=== PATIENT | female | born 1965 | race Two or more races ===

== ENCOUNTER 2017-09-06 09:13 | Emergency (ER) | payer SELFPAY ==
[~2017-09-06 09:13] MED LIST: DOXY100C2 PO
--- NOTE | 2017-09-06 09:17 | PHYS DOC ---
Past Medical History Past Medical History: High Cholesterol, Hypertension, Other Additional Past Medical Histor: VIT D DEFICIENCY, PRE DIABETES Past Surgical History: Cholecystectomy Alcohol Use: None Drug Use: None Adult General Chief Complaint Chief Complaint: ABDOMINAL PAIN HPI HPI Patient is a 52 year old female who presents with in severe pain and rectal pain. She has been going on for about 2 weeks. She states is constant. It 's actually relieved a little bit after she has a bowel movement. She denies any blood in her stools. She denies any vaginal bleeding or discharge. She's not had any surgeries on her abdomen. She's not been taking anything for pain or discomfort. She states that the pain is getting worse over the last few days she felt like she had body aches and muscle aches throughout her body. Results and her . The blue phone was used to interpret. She states that she feels like she's constipation been eating a lot of fruits and soft and and that makes her have diarrhea. She denies any chills, or vomiting. She denies any shortness of breath. Review of Systems Review of Systems Constitutional: Denies fever or chills [] Eyes: Denies change in visual acuity, redness, or eye pain [] HENT: Denies nasal congestion or sore throat [] Respiratory: Denies cough or shortness of breath [] Cardiovascular: No additional information not addressed in HPI [] GI: Positive for abdominal pain,Denies nausea, vomiting, bloody stools or diarrhea [] : Denies dysuria or hematuria [] Musculoskeletal: Denies back pain or joint pain [] Integument: Denies rash or skin lesions [] Neurologic: Denies headache, focal weakness or sensory changes [] Endocrine: Denies polyuria or polydipsia [] All other systems were reviewed and found to be within normal limits, except as documented in this note. Current Medications Current Medications Current Medications Medications (Trade) Dose Ordered Sig/Fernandez Start Time Stop Time Status Last Admin Dose Admin Fentanyl Citrate (Fentanyl 2ml Vial) 25 mcg PRN Q15MIN PRN 09/06/17 09:45 09/07/17 09:44 09/06/17 10:12 25 MCG Info (Do NOT chart on this entry -- for MONITORING) 1 each PRN DAILY PRN 09/06/17 10:15 09/08/17 10:14 Iohexol (Omnipaque 300 Mg/ml) 75 ml 1X ONCE 09/06/17 10:15 09/06/17 10:16 DC 09/06/17 10:57 75 ML Sodium Chloride 1,000 ml @ 1,000 mls/hr Q1H 09/06/17 09:17 09/06/17 10:16 DC 09/06/17 10:09 1,000 MLS/HR Allergies Allergies Allergies Coded Allergies Type Severity Reaction Last Updated Verified No Known Drug Allergies 08/01/16 No Physical Exam Physical Exam Constitutional: Well developed, well nourished, no acute distress, non-toxic appearance. [] HENT: Normocephalic, atraumatic, bilateral external ears normal, oropharynx moist, no oral exudates, nose normal. [] Eyes: PERRLA, EOMI, conjunctiva normal, no discharge. [] Neck: Normal range of motion, no tenderness, supple, no stridor. [] Cardiovascular:Heart rate regular rhythm, no murmur [] Lungs & Thorax: Bilateral breath sounds clear to auscultation [] Abdomen/rectal exam: Bowel sounds normal, soft, tender palpation in the bilateral lower quadrants and suprapubic area the most, no rebound or guarding, no masses, no pulsatile masses. Rectal exam shows 2 external hemorrhoids noted, normal tone, no masses, stool in the vault no blood noted [] Skin: Warm, dry, no erythema, no rash. [] Back: No tenderness, no CVA tenderness. [] Extremities: No tenderness, no cyanosis, no clubbing, ROM intact, no edema. [] Neurologic: Alert and oriented X 3, normal motor function, normal sensory function, no focal deficits noted. [] Psychologic: Affect normal, judgement normal, mood normal. [] Current Patient Data Vital Signs Vital Signs Date Time Temp Pulse Resp B/P (MAP) Pulse Ox O2 Delivery O2 Flow Rate FiO2 09/06/17 10:12 16 09/06/17 09:15 97.9 85 156/100 (118) 97 Room Air 97.9 Lab Values Laboratory Tests Test 09/06/17 09:25 09/06/17 09:40 09/06/17 10:10 Urine Collection Type Unknown Urine Color Yellow Urine Clarity Clear Urine pH 7.0 Urine Specific [place] 1.010 Urine Protein Negative mg/dL (NEG-TRACE) Urine Glucose (UA) Negative mg/dL (NEG) Urine Ketones (Stick) Negative mg/dL (NEG) Urine Blood Negative (NEG) Urine Nitrite Negative (NEG) Urine Bilirubin Negative (NEG) Urine Urobilinogen Dipstick 0.2 mg/dL (0.2 mg/dL) Urine Leukocyte Esterase Small (NEG) Urine RBC 0 /HPF (0-2) Urine WBC Occ /HPF (0-4) Urine Squamous Epithelial Cells Few /LPF Urine Bacteria Few /HPF (0-FEW) Urine Opiates Screen Neg (NEG) Urine Methadone Screen Neg (NEG) Urine Barbiturates Neg (NEG) Urine Phencyclidine Screen Neg (NEG) Urine Amphetamine/Methamphetamine Neg (NEG) Urine Benzodiazepines Screen Neg (NEG) Urine Cocaine Screen Neg (NEG) Urine Cannabinoids Screen Neg (NEG) Urine Ethyl Alcohol Neg (NEG) White Blood Count 5.9 x10^3/uL (4.0-11.0) Red Blood Count 4.96 x10^6/uL (3.50-5.40) Hemoglobin 14.4 g/dL (12.0-15.5) Hematocrit 43.5 % (36.0-47.0) Mean Corpuscular Volume 88 fL (79-100) Mean Corpuscular Hemoglobin 29 pg (25-35) Mean Corpuscular Hemoglobin Concent 33 g/dL (31-37) Red Cell Distribution Width 14.8 % (11.5-14.5) H Platelet Count 223 x10^3/uL (140-400) Neutrophils (%) (Auto) 49 % (31-73) Lymphocytes (%) (Auto) 41 % (24-48) Monocytes (%) (Auto) 6 % (0-9) Eosinophils (%) (Auto) 3 % (0-3) Basophils (%) (Auto) 0 % (0-3) Neutrophils # (Auto) 2.9 x10^3uL (1.8-7.7) Lymphocytes # (Auto) 2.4 x10^3/uL (1.0-4.8) Monocytes # (Auto) 0.4 x10^3/uL (0.0-1.1) Eosinophils # (Auto) 0.2 x10^3/uL (0.0-0.7) Basophils # (Auto) 0.0 x10^3/uL (0.0-0.2) Prothrombin Time 12.4 SEC (11.7-14.0) Prothrombin Time INR 1.0 (0.8-1.1) Sodium Level 139 mmol/L (136-145) Potassium Level 4.1 mmol/L (3.5-5.1) Chloride Level 102 mmol/L (98-107) Carbon Dioxide Level 29 mmol/L (21-32) Anion Gap 8 (6-14) Blood Urea Nitrogen 12 mg/dL (7-20) Creatinine 0.5 mg/dL (0.6-1.0) L Estimated GFR (Cockcroft-Gault) 129.1 Glucose Level 101 mg/dL (70-99) H Calcium Level 9.1 mg/dL (8.5-10.1) Magnesium Level 2.1 mg/dL (1.8-2.4) Total Bilirubin 0.7 mg/dL (0.2-1.0) Direct Bilirubin 0.1 mg/dL (0.0-0.2) Aspartate Amino Transferase (AST) 21 U/L (15-37) Alanine Aminotransferase (ALT) 38 U/L (14-59) Alkaline Phosphatase 103 U/L (46-116) Creatine Kinase 92 U/L (26-192) Creatine Kinase MB (Mass) 0.7 ng/mL (0.0-3.6) Creatine Kinase MB Relative Index 0.8 % (0-4) Troponin I Quantitative < 0.017 ng/mL (0.000-0.055) IT-Zkn-V-Type Natriuretic Peptide 10 pg/mL (0-124) Total Protein 7.9 g/dL (6.4-8.2) Albumin 4.1 g/dL (3.4-5.0) Lipase 157 U/L (73-393) Thyroid Stimulating Hormone (TSH) 1.972 uIU/mL (0.358-3.74) Stool Occult Blood Negative (NEG) Laboratory Tests 09/06/17 09:40 Laboratory Tests 09/06/17 09:40 EKG EKG EKG shows sinus rhythm [address] elevations, or without any T- wave inversions that are concerning. Normal axis, QTC 445 ms, as interpreted by me. Radiology/Procedures Radiology/Procedures [facility] [address] [place] [address] IMAGING REPORT Signed PATIENT: WHIT MARIN ACCOUNT: [id number] : 1965 LOCATION: ER AGE: 52 SEX: F EXAM STATUS: REG ER ORD. PHYSICIAN: ALANNA ARELLANO MD REASON: abd pain PROCEDURE: CT ABD PELV W/ IV CONTRST ONLY EXAM: CT abdomen and pelvis with contrast. HISTORY: 52-year-old female with abdominal pain and diarrhea. Patient reports a history of right kidney stone. Previous cholecystectomy and . TECHNIQUE: Computed tomographic images of the abdomen and pelvis are obtained following the intravenous demonstration of 75 cc of Omni 300.. Multiplanar reformatting was performed. One or more of the following individualized dose reduction techniques were utilized for this examination: 1. Automated exposure control 2. Adjustment of the mA and/or kV according to patient size 3. Use of iterative reconstruction technique COMPARISON: None. FINDINGS: The visualized lung bases are clear. The liver demonstrates no focal abnormality. Gallbladder is surgically absent. The spleen, pancreas and adrenal glands demonstrate no focal abnormality. Mild right hydronephrosis is present. No right nephrolithiasis is seen. A 5 mm calculus is present within the inferior left kidney, without significant hydronephrosis present. No ureterolithiasis is seen. A subcentimeter, superior right cortical hypodensity is present, too small to characterize. Urinary bladder is mostly decompressed and not well evaluated. The GI tract demonstrates no dilated bowel loops to suggest obstruction. Appendix is normal in caliber and air-filled in the right lower quadrant. The uterus and bilateral adnexa demonstrate no focal abnormality. No free fluid, free air or significant lymphadenopathy is seen within the abdomen or pelvis. Fat-containing umbilical hernia is present. Overlying soft tissues and visualized osseous structures demonstrate no acute finding. Mild degenerative changes are present within the visualized spine. IMPRESSION: 1. Nonobstructing inferior left renal calculus measuring 5 mm. Mild right hydronephrosis is present, without right nephrolithiasis or bilateral ureterolithiasis seen. 2. No other acute intraabdominal or pelvic process is seen. DICTATED and SIGNED BY: SONNY OCHOA MD DATE: 09/06/17 1104 CC: ALANNA ARELLANO MD; NO PCP ~ [facility] [address] [place] [address] IMAGING REPORT Signed PATIENT: WHIT MARIN ACCOUNT: [id number] : 1965 LOCATION: ER AGE: 52 SEX: F EXAM STATUS: REG ER ORD. PHYSICIAN: ALANNA ARELLANO MD REASON: pelvic pain PROCEDURE: PELVIS W/TV PELVIS W/TV Clinical Indication: pelvic pain Comparison: None. Technique: Transverse and longitudinal sonography of the pelvis is performed utilizing transabdominal and transvaginal transducers. Findings: Transabdominal imaging demonstrates an anteflexed uterus measuring 7.6 x 3.5 x 5.1 cm. Endometrial thickness measures 4 mm. No focal myometrial abnormality is seen. Neither ovary is visualized. Transvaginal imaging demonstrates partial visualization of the left ovary, posteriorly located, measuring approximately 3.2 x 2.5 x 2.3 cm. Internal blood flow is documented. The right ovary is better visualized, more anteriorly located, measuring 2.4 x 1.6 x 1.5 cm with internal blood flow documented. No ovarian or adnexal mass is seen. Uterus measures 6.9 x 4.9 x 5.6 cm transvaginally. No free fluid seen within the provided images. IMPRESSION: No focal sonographic abnormality seen in the pelvis. DICTATED and SIGNED BY: SONNY OCHOA MD DATE: 09/06/17 1100 CC: ALANNA ARELLANO MD; NO PCP ~ [facility] [address] [place] [address] IMAGING REPORT Signed PATIENT: WHIT MARIN ACCOUNT: [id number] : 1965 LOCATION: ER AGE: 52 SEX: F EXAM STATUS: REG ER ORD. PHYSICIAN: ALANNA ARELLANO MD REASON: pelvic pain PROCEDURE: PELVIS PELVIS Clinical Indication: 52-year-old female with pelvic pain, no injury specified. Comparison: None. Technique: Frontal supine view of the pelvis is obtained. Findings: No acute, displaced pelvic fracture is seen. SI joints, hip joints, and pubic symphysis are maintained. Mild degenerative changes of the hip joints and pubic symphysis are seen. Some formed fecal material is seen within the visualized proximal colon and rectum. Surrounding soft tissues demonstrate no acute finding. IMPRESSION: No acute osseous injury seen. DICTATED and SIGNED BY: SONNY OCHOA MD DATE: 09/06/17 1012 CC: ALANNA ARELLANO MD; NO PCP ~ Impressions: Hemorrhoids Right-sided hydronephrosis without any stones present\ left-sided kidney stone Course & Med Decision Making Course & Med Decision Making Pertinent Labs and Imaging studies reviewed. (See chart for details) CT scan abdomen pelvis shows right-sided hydronephrosis without any stones. She does not have any blood in her urine. She will need to follow-up with urology at [facility] for this. She also has external hemorrhoid social be sent home with hydrocortisone rectal suppositories. A prescription has been written. She'll follow-up with Dr. Johnson regarding this. Return precautions given. She is agreeable to the plan being discharged in stable condition at this time. Dragon Disclaimer Dragon Disclaimer This electronic medical record was generated, in whole or in part, using a voice recognition dictation system. Departure Departure Impression: Primary Impression: External hemorrhoids Disposition: 01 HOME, SELF-CARE Condition: STABLE Referrals: NO PCP (PCP) SHERI JOHNSON MD Patient Instructions: Hemorrhoids Additional Instructions: Your blood work, CT scan shows you have some kidney stones that are not causing any problems at this time. You will need to follow-up with urologist. You should follow them up at [facility] at: [phone] [facility]. Their phone number is: You also external hemorrhoids and you can use hemorrhoidal cream as instructed. You follow-up with surgery. Please call Dr. Johnson at the number listed. If you have increasing pain, or other concerns please return back to emergency department. Scripts Hydrocortisone Acetate (ANUSOL-HC) 25 Mg Supp.rect 1 SUPP RC BID, #14 SUPP Prov: ALANNA ARELLANO MD 09/06/17 ALANNA ARELLANO MD Sep 06, 2017 09:17
[2017-09-06 09:38] LABS: BILIRUBIN,URINE NEGATIVE (NEG); GLUCOSE,URINE NEGATIVE (NEG); NITRITE,URINE NEGATIVE (NEG); PROTEIN,URINE NEGATIVE (NEG-TRACE); UROBILINOGEN,URINE 0.2 mg/dL (0.2 mg/dL)
[2017-09-06 09:46] LABS: BACTERIA,URINE FEW /HPF (0-FEW); BARBITURATES NEG (NEG); BENZODIAZEPINES NEG (NEG); CANNABINOIDS NEG (NEG); COCAINE NEG (NEG); METHADONE NEG (NEG); OPIATES NEG (NEG); PHENCYCLIDINE NEG (NEG); RBC,URINE 0 /HPF (0-2); SQUAMOUS EPITHELIAL CELL,UR FEW /LPF; WBC,URINE OCC /HPF (0-4)
[2017-09-06 09:57] LABS: BASO % 0 % (0-3); EOS % 3 % (0-3); HEMATOCRIT 43.5 % (36.0-47.0); HEMOGLOBIN 14.4 g/dL (12.0-15.5); LYMPH # 2.4 x10^3/uL (1.0-4.8); LYMPH % 41 % (24-48); MEAN CORPUSCULAR HEMOGLOBIN 29 pg (25-35); MEAN CORPUSCULAR HGB CONC 33 g/dL (31-37); MEAN CORPUSCULAR VOLUME 88 fL (79-100); MONO % 6 % (0-9); NEUT % 49 % (31-73); PLATELET COUNT 223 x10^3/uL (140-400); RED BLOOD COUNT 4.96 x10^6/uL (3.50-5.40); RED CELL DISTRIBUTION WIDTH 14.8 % (11.5-14.5); WHITE BLOOD COUNT 5.9 x10^3/uL (4.0-11.0)
[2017-09-06 10:05] LABS: PROTHROMBIN TIME PATIENT 12.4 SEC (11.7-14.0)
[2017-09-06 10:08] LABS: CALCIUM 9.1 mg/dL (8.5-10.1); CREATININE 0.5 mg/dL (0.6-1.0); GFR 129.1; POTASSIUM 4.1 mmol/L (3.5-5.1)
[2017-09-06] MEDS: IV NORMAL SALINE 1000ML BAG 1,000 ML IV SCH (10:09)
[2017-09-06] MEDS: fentaNYL PF VIAL 100 MCG/2 ML VIAL IV PRN (10:12)
[2017-09-06 10:14] LABS: ALBUMIN 4.1 g/dL (3.4-5.0); DIRECT BILIRUBIN 0.1 mg/dL (0.0-0.2); MAGNESIUM 2.1 mg/dL (1.8-2.4); TOTAL BILIRUBIN 0.7 mg/dL (0.2-1.0); TOTAL PROTEIN 7.9 g/dL (6.4-8.2)
[2017-09-06] MEDS ORDERED: CONTRAST GIVEN MC PRN (10:15)
--- NOTE | 2017-09-06 10:15 | EKG ---
[facility] [address] [place] [address] Test Date: 2017-09-06 Test Time: 10:00:25 Pat Name: WHIT MARIN Department: Room: Gender: F Surgical Services Tech: : 1965 Requested By: ALANNA ARELLANO Order Number: [id number] Reading MD: Byron Bailey MD Measurements Intervals [place] Rate: 76 P: 51 TX: 180 QRS: 3 QRSD: 100 T: 27 QT: 392 QTc: 445 Interpretive Statements SINUS RHYTHM Electronically Signed On 09-11-2017 15:59:31 PROPOSAL ANALYST by Byron Bailey MD
--- NOTE | 2017-09-06 10:18 | RAD ---
PELVIS Clinical Indication: 52-year-old female with pelvic pain, no injury specified. Comparison: None. Technique: Frontal supine view of the pelvis is obtained. Findings: No acute, displaced pelvic fracture is seen. SI joints, hip joints, and pubic symphysis are maintained. Mild degenerative changes of the hip joints and pubic symphysis are seen. Some formed fecal material is seen within the visualized proximal colon and rectum. Surrounding soft tissues demonstrate no acute finding. IMPRESSION: No acute osseous injury seen.
[2017-09-06 10:22] LABS: CKMB MASS 0.7 ng/mL (0.0-3.6)
[2017-09-06 10:45] LABS: NEG OBC FOB NEG; POS OBC FOB POS
[2017-09-06] MEDS: IOHEXOL 300 MG/ML 100ML VIAL. IV ONE (10:57)
--- NOTE | 2017-09-06 11:09 | RAD ---
PELVIS W/TV Clinical Indication: pelvic pain Comparison: None. Technique: Transverse and longitudinal sonography of the pelvis is performed utilizing transabdominal and transvaginal transducers. Findings: Transabdominal imaging demonstrates an anteflexed uterus measuring 7.6 x 3.5 x 5.1 cm. Endometrial thickness measures 4 mm. No focal myometrial abnormality is seen. Neither ovary is visualized. Transvaginal imaging demonstrates partial visualization of the left ovary, posteriorly located, measuring approximately 3.2 x 2.5 x 2.3 cm. Internal blood flow is documented. The right ovary is better visualized, more anteriorly located, measuring 2.4 x 1.6 x 1.5 cm with internal blood flow documented. No ovarian or adnexal mass is seen. Uterus measures 6.9 x 4.9 x 5.6 cm transvaginally. No free fluid seen within the provided images. IMPRESSION: No focal sonographic abnormality seen in the pelvis.
--- NOTE | 2017-09-06 11:17 | RAD ---
EXAM: CT abdomen and pelvis with contrast. HISTORY: 52-year-old female with abdominal pain and diarrhea. Patient reports a history of right kidney stone. Previous cholecystectomy and . TECHNIQUE: Computed tomographic images of the abdomen and pelvis are obtained following the intravenous demonstration of 75 cc of Omni 300.. Multiplanar reformatting was performed. One or more of the following individualized dose reduction techniques were utilized for this examination: 1. Automated exposure control 2. Adjustment of the mA and/or kV according to patient size 3. Use of iterative reconstruction technique COMPARISON: None. FINDINGS: The visualized lung bases are clear. The liver demonstrates no focal abnormality. Gallbladder is surgically absent. The spleen, pancreas and adrenal glands demonstrate no focal abnormality. Mild right hydronephrosis is present. No right nephrolithiasis is seen. A 5 mm calculus is present within the inferior left kidney, without significant hydronephrosis present. No ureterolithiasis is seen. A subcentimeter, superior right cortical hypodensity is present, too small to characterize. Urinary bladder is mostly decompressed and not well evaluated. The GI tract demonstrates no dilated bowel loops to suggest obstruction. Appendix is normal in caliber and air-filled in the right lower quadrant. The uterus and bilateral adnexa demonstrate no focal abnormality. No free fluid, free air or significant lymphadenopathy is seen within the abdomen or pelvis. Fat-containing umbilical hernia is present. Overlying soft tissues and visualized osseous structures demonstrate no acute finding. Mild degenerative changes are present within the visualized spine. IMPRESSION: 1. Nonobstructing inferior left renal calculus measuring 5 mm. Mild right hydronephrosis is present, without right nephrolithiasis or bilateral ureterolithiasis seen. 2. No other acute intraabdominal or pelvic process is seen.
[2017-09-06] MEDS ORDERED: HYDR25SU18 RC (11:34)
[2017-09-06 12:00] VITALS: BP 160/81
--- NOTE | 2017-09-08 16:29 | VNOTE ---
CALL BACK NOTE CALL BACK Microbiology 09/06/17 Urine Culture - Final, Complete 09/06/17 Urine Culture Result 1 (SARA) - Final, Complete 09/06/17 Urine Culture Result 2 (SARA) - Final, Complete 09/06/17 Antimicrobic Susceptibility - Final, Complete Called to patient about her urine culture results and left voicemail. FIDENCIO MONGE APRN Sep 08, 2017 16:29
== END 2017-09-06 12:10 | disposition home or self-care (01) ==
LOC: ER 09:13
DX: K64.4 Residual hemorrhoidal skin tags (principal); E78.00 Pure hypercholesterolemia, unspecified; I10 Essential (primary) hypertension; Z90.49 Acquired absence of other specified parts of digestive tract; Z87.442 Personal history of urinary calculi
CPT/HCPCS: 36415; 72170; 74177; 76830; 76856; 80048; 80076; 80307; 81001; 82274; 82553; 83690; 83735; 83880; 84443; 84484; 85025; 85610; 87086; 87186; 93005; 96361; 96374; 99285; J3010; J7030; Q9967; G0479